=== PATIENT | male | born 1975 | race Caucasian/White ===

== ENCOUNTER 2016-04-03 08:47 | Outpatient (CLI) | payer BC, OTHER | END 2016-04-03 08:48 | disposition home or self-care (01) | DX: I10 Essential (primary) hypertension (principal) ==

== ENCOUNTER 2017-05-03 07:36 | Outpatient (CLI) | payer BC ==
[2017-05-03 13:05] LABS: BASOPHILS % (AUTO) 0.6 %; EOSINOPHILS # (AUTO) 0.2 10^3/uL (0.0-0.7); EOSINOPHILS % (AUTO) 3.8 %; HGB - HEMOGLOBIN 14.6 g/dL (14.0-18.0); LYMPHOCYTES # (AUTO) 1.7 10^3/uL (1.5-3.5); LYMPHOCYTES % (AUTO) 28.2 %; MEAN CORPUSCULAR HGB CONC 34.1 g/dL (32.0-36.0); MEAN CORPUSCULAR VOLUME 96.8 fL (80.0-94.0); MEAN PLATELET VOLUME 8.8 fL (7.4-11.4); MONOCYTES # (AUTO) 0.5 10^3/uL (0.0-1.0); MONOCYTES % (AUTO) 7.7 %; NEUTROPHILS # (AUTO) 3.5 10^3/uL (1.5-6.6); NEUTROPHILS % (AUTO) 59.7 %; PLT - PLATELET COUNT 215 10^3/uL (130-450); RED BLOOD COUNT 4.41 10^6/uL (4.70-6.10); RED CELL DISTRIBUTION WIDTH 13.1 % (12.0-15.0); WHITE BLOOD COUNT 5.9 x10^3/uL (4.8-10.8)
[2017-05-03 13:26] LABS: ALBUMIN 4.2 g/dL (3.2-5.5); ALBUMIN/GLOBULIN RATIO 1.4 (1.0-2.2); ALKALINE PHOSPHATASE 64 IU/L (42-121); ALT ALANINE AMINOTRANSFERASE 32 IU/L (10-60); AST ASPARTATE AMINOTRANSFERASE 21 IU/L (10-42); BILIRUBIN,TOTAL 0.5 mg/dL (0.2-1.0); BUN - BLOOD UREA NITROGEN 16 mg/dL (6-20); CALCIUM 8.5 mg/dL (8.5-10.3); CARBON DIOXIDE - CO2 26 mmol/L (21-32); CHLORIDE 105 mmol/L (101-111); CHOL/HDL RATIO 2.3 (<5.0); CHOLESTEROL 163 mg/dL; CREATININE 0.9 mg/dL (0.6-1.2); GFR - MDRD 92 (>89); GLUCOSE 106 mg/dL (70-100); HDL CHOLESTEROL 71 mg/dL; SODIUM 138 mmol/L (135-145); TOTAL PROTEIN 7.3 g/dL (6.7-8.2)
[2017-05-03 13:29] LABS: HB2 TOTAL 15.8 g/dL; HEMOGLOBIN A1C 0.56 g/dL; HEMOGLOBIN A1C % 5.4 % (4.6-6.2)
[2017-05-03 13:31] LABS: PLATELET ESTIMATE, MANUAL NORMAL (130-450,000) (NORMAL); PLATELET MORPHOLOGY NORMAL APPEARANCE (NORMAL); RBC MORPHOLOGY (MULTIPLE) NORMAL APPEARANCE (NORMAL)
[2017-05-03 13:57] LABS: LDL CHOLESTEROL,DIRECT 78 mg/dL; LDLD/HDL RATIO 1.1 (<3.6)
== END 2017-05-03 07:37 | disposition home or self-care (01) ==
LOC: LAB.WCP 07:36
PROVIDERS: ATTEND Family Medicine
DX: I10 Essential (primary) hypertension (principal); E66.3 Overweight; R73.9 Hyperglycemia, unspecified
CPT/HCPCS: 36415; 80053; 80061; 83036; 83721; 85025

== ENCOUNTER 2017-07-28 08:00 | Outpatient (CLI) | payer BC ==
[2017-07-28 18:52] LABS: BASOPHILS # (AUTO) 0.1 10^3/uL (0.0-0.1); BASOPHILS % (AUTO) 0.8 %; EOSINOPHILS # (AUTO) 0.2 10^3/uL (0.0-0.7); EOSINOPHILS % (AUTO) 3.1 %; HGB - HEMOGLOBIN 14.3 g/dL (14.0-18.0); LYMPHOCYTES # (AUTO) 2.3 10^3/uL (1.5-3.5); MEAN CORPUSCULAR HEMOGLOBIN 32.5 pg (27.0-31.0); MEAN CORPUSCULAR VOLUME 98.5 fL (80.0-94.0); MEAN PLATELET VOLUME 8.7 fL (7.4-11.4); MONOCYTES # (AUTO) 0.5 10^3/uL (0.0-1.0); MONOCYTES % (AUTO) 7.1 %; NEUTROPHILS # (AUTO) 4.3 10^3/uL (1.5-6.6); PLT - PLATELET COUNT 215 10^3/uL (130-450); RED BLOOD COUNT 4.39 10^6/uL (4.70-6.10); RED CELL DISTRIBUTION WIDTH 13.2 % (12.0-15.0); WHITE BLOOD COUNT 7.4 x10^3/uL (4.8-10.8)
[2017-07-28 19:13] LABS: ALBUMIN 4.4 g/dL (3.2-5.5); ALBUMIN/GLOBULIN RATIO 1.5 (1.0-2.2); BILIRUBIN,TOTAL 0.8 mg/dL (0.2-1.0); TOTAL PROTEIN 7.3 g/dL (6.7-8.2)
== END 2017-07-28 08:01 | disposition home or self-care (01) ==
LOC: LAB.WCP 08:00
PROVIDERS: ATTEND Internal Medicine Rheumatology
DX: L40.50 Arthropathic psoriasis, unspecified (principal)
CPT/HCPCS: 36415; 80053; 85025; 85651

== ENCOUNTER 2018-05-17 15:34 | Outpatient (CLI) | payer BC ==
[2018-05-17 15:44] LABS: BASOPHILS # (AUTO) 0.1 10^3/uL (0.0-0.1); BASOPHILS % (AUTO) 0.9 %; EOSINOPHILS # (AUTO) 0.2 10^3/uL (0.0-0.7); EOSINOPHILS % (AUTO) 2.8 %; HGB - HEMOGLOBIN 14.6 g/dL (14.0-18.0); LYMPHOCYTES # (AUTO) 2.1 10^3/uL (1.5-3.5); MEAN CORPUSCULAR HEMOGLOBIN 33.9 pg (27.0-31.0); MEAN CORPUSCULAR HGB CONC 34.1 g/dL (32.0-36.0); MEAN CORPUSCULAR VOLUME 99.3 fL (80.0-94.0); MONOCYTES # (AUTO) 0.5 10^3/uL (0.0-1.0); MONOCYTES % (AUTO) 7.8 %; NEUTROPHILS # (AUTO) 3.2 10^3/uL (1.5-6.6); NEUTROPHILS % (AUTO) 53.5 %; PLT - PLATELET COUNT 198 10^3/uL (130-450); RED BLOOD COUNT 4.32 10^6/uL (4.70-6.10); RED CELL DISTRIBUTION WIDTH 13.5 % (12.0-15.0)
[2018-05-17 15:57] LABS: ALBUMIN 4.4 g/dL (3.2-5.5); ALBUMIN/GLOBULIN RATIO 1.5 (1.0-2.2); BILIRUBIN,TOTAL 0.6 mg/dL (0.2-1.0); CALCIUM 9.3 mg/dL (8.5-10.3); CREATININE 0.9 mg/dL (0.6-1.2); TOTAL PROTEIN 7.3 g/dL (6.7-8.2)
== END 2018-05-17 15:35 | disposition home or self-care (01) ==
LOC: LAB 15:34
PROVIDERS: ATTEND Internal Medicine Gastroenterology
DX: L40.50 Arthropathic psoriasis, unspecified (principal)
CPT/HCPCS: 36415; 80053; 85025

== ENCOUNTER 2018-05-20 06:11 | Day surgery (SDC) | payer BC ==
[2018-05-20] MEDS ORDERED: LACTATED RINGERS 1,000 ML IV ONE (06:50)
[2018-05-20] MEDS ORDERED: MIDAZOLAM 2 MG/2 ML VIAL IVP ONE (07:16)
[2018-05-20] MEDS ORDERED: fentaNYL 250 MCG/5 ML VIAL IVP ONE (07:16)
[2018-05-20 09:21] VITALS: BP 113/73
--- NOTE | 2018-05-20 10:31 | OPERATIVE REPORT ---
DATE OF SERVICE: 05/20/2018 Physician: Jerry Berkowitz MD PREOPERATIVE DIAGNOSIS: Rectal bleeding. POSTOPERATIVE DIAGNOSIS: Enlarged hemorrhoids. INDICATIONS FOR PROCEDURE: The patient is a 42-year-old man who presented to clinic with a chief complaint of painless rectal bleeding with bowel movements. He elected to have a colonoscopy performed at that time. PROCEDURE IN DETAIL: The risks and benefits were explained to the patient and his family. He was taken to the operating room, given sedation. Timeout was performed and everyone in the room agreed to the procedure. We begun by inserting a lubricated colonoscope in the rectal vault. We proceeded to the cecum, identifying the appendiceal orifice. The prep was adequate. We then insufflated the colon and slowly withdrew. No abnormalities were seen, including no masses, polyps, or diverticula. He did have enlarged internal an external hemorrhoids. The scope was then completely withdrawn and the procedure terminated. The patient tolerated the procedure well. He was taken to recovery in stable condition. ESTIMATED BLOOD LOSS: None. COMPLICATIONS: None. PLAN: Will repeat colonoscopy in 10 years. TD: 05/20/2018 08:36 SINDY
== END 2018-05-20 06:12 | disposition home or self-care (01) ==
LOC: SDS 06:11
PROVIDERS: ATTEND Surgery
PROC: 0DJD8ZZ Inspection of Lower Intestinal Tract, Via Natural or Artificial Opening Endoscopic (ICD-10-PCS; principal; 2018-05-20 07:30)
DX: K64.4 Residual hemorrhoidal skin tags (principal); K64.8 Other hemorrhoids; K21.9 Gastro-esophageal reflux disease without esophagitis; K59.09 Other constipation; I10 Essential (primary) hypertension; F81.9 Developmental disorder of scholastic skills, unspecified; E66.9 Obesity, unspecified; Z68.31 Body mass index [BMI] 31.0-31.9, adult; L40.50 Arthropathic psoriasis, unspecified; J30.9 Allergic rhinitis, unspecified; R35.0 Frequency of micturition; L21.9 Seborrheic dermatitis, unspecified; L25.9 Unspecified contact dermatitis, unspecified cause; F39 Unspecified mood [affective] disorder; M77.40 Metatarsalgia, unspecified foot
CPT/HCPCS: 45378; J7120

== ENCOUNTER 2018-07-13 10:12 | Outpatient (CLI) | payer BC ==
[2018-07-13 12:28] LABS: BASOPHILS # (AUTO) 0.1 10^3/uL (0.0-0.1); BASOPHILS % (AUTO) 0.9 %; EOSINOPHILS # (AUTO) 0.3 10^3/uL (0.0-0.7); EOSINOPHILS % (AUTO) 4.8 %; HGB - HEMOGLOBIN 15.4 g/dL (14.0-18.0); LYMPHOCYTES # (AUTO) 1.7 10^3/uL (1.5-3.5); LYMPHOCYTES % (AUTO) 30.6 %; MEAN CORPUSCULAR HEMOGLOBIN 34.1 pg (27.0-31.0); MEAN CORPUSCULAR HGB CONC 34.1 g/dL (32.0-36.0); MEAN PLATELET VOLUME 9.2 fL (7.4-11.4); MONOCYTES # (AUTO) 0.5 10^3/uL (0.0-1.0); MONOCYTES % (AUTO) 8.7 %; PLT - PLATELET COUNT 208 10^3/uL (130-450); RED BLOOD COUNT 4.52 10^6/uL (4.70-6.10); RED CELL DISTRIBUTION WIDTH 13.6 % (12.0-15.0); WHITE BLOOD COUNT 5.5 x10^3/uL (4.8-10.8)
[2018-07-13 13:18] LABS: ALBUMIN 4.3 g/dL (3.2-5.5); ALBUMIN/GLOBULIN RATIO 1.6 (1.0-2.2); BILIRUBIN,TOTAL 0.6 mg/dL (0.2-1.0)
== END 2018-07-13 23:59 | disposition home or self-care (01) ==
LOC: LAB.WCP 10:12
PROVIDERS: ATTEND Internal Medicine Rheumatology
DX: L40.50 Arthropathic psoriasis, unspecified (principal)
CPT/HCPCS: 36415; 80053; 85025; 85651

== ENCOUNTER 2018-08-01 13:36 | Outpatient (CLI) | payer BC ==
--- NOTE | 2018-08-01 14:54 | XRAY Report ---
Reason: BILATERAL HAND PAIN Procedure Date: 08/01/2018 Accession Number: [id number] / [id number] Procedure: WCP - Hand 2 View BILAT CPT Code: FULL RESULT: EXAMS: 1. RIGHT HAND RADIOGRAPHY 2. LEFT HAND RADIOGRAPHY EXAM DATE: 08/01/2018 01:50 PM. CLINICAL HISTORY: Bilateral hand pain. COMPARISON: 03/15/2015 3:24 PM. TECHNIQUE: 2 views each hand. FINDINGS: Right: Bones: Normal. No fractures or bone lesions. Joints: There is joint space loss with minimal or no osteophyte formation, most pronounced at the proximal interphalangeal joints. Subluxation of the proximal interphalangeal joint of the first ray. Minimal progression compared to 2016. Soft Tissues: Normal. No soft tissue swelling. Left: Bones: Normal. No fractures or bone lesions. Joints: Joint space loss predominantly at the interphalangeal joints with no significant accompanying osteophyte formation. There is subluxation at the proximal interphalangeal joint of the first ray. Minimal progression compared to 2016. Soft Tissues: Normal. No soft tissue swelling. 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 RADIA
== END 2018-08-01 13:37 | disposition home or self-care (01) ==
LOC: DI.WCP 13:36
PROVIDERS: ATTEND Internal Medicine Rheumatology
DX: M79.641 Pain in right hand (principal); M79.642 Pain in left hand; L40.50 Arthropathic psoriasis, unspecified

== ENCOUNTER 2018-10-05 08:00 | Outpatient (CLI) | payer BC ==
[2018-10-05 12:28] LABS: BASOPHILS # (AUTO) 0.1 10^3/uL (0.0-0.1); EOSINOPHILS # (AUTO) 0.2 10^3/uL (0.0-0.7); EOSINOPHILS % (AUTO) 3.9 %; HGB - HEMOGLOBIN 15.1 g/dL (14.0-18.0); LYMPHOCYTES # (AUTO) 1.4 10^3/uL (1.5-3.5); LYMPHOCYTES % (AUTO) 27.8 %; MEAN CORPUSCULAR HEMOGLOBIN 34.2 pg (27.0-31.0); MEAN CORPUSCULAR HGB CONC 34.6 g/dL (32.0-36.0); MEAN CORPUSCULAR VOLUME 98.9 fL (80.0-94.0); MONOCYTES # (AUTO) 0.4 10^3/uL (0.0-1.0); MONOCYTES % (AUTO) 8.6 %; NEUTROPHILS # (AUTO) 2.8 10^3/uL (1.5-6.6); NEUTROPHILS % (AUTO) 58.5 %; PLT - PLATELET COUNT 215 10^3/uL (130-450); RED BLOOD COUNT 4.41 10^6/uL (4.70-6.10); RED CELL DISTRIBUTION WIDTH 12.4 % (12.0-15.0); WHITE BLOOD COUNT 4.9 x10^3/uL (4.8-10.8)
[2018-10-05 12:42] LABS: ALBUMIN 4.5 g/dL (3.2-5.5); ALBUMIN/GLOBULIN RATIO 1.6 (1.0-2.2); BILIRUBIN,TOTAL 0.7 mg/dL (0.2-1.0); CALCIUM 9.1 mg/dL (8.5-10.3); TOTAL PROTEIN 7.4 g/dL (6.7-8.2)
== END 2018-10-05 23:59 | disposition home or self-care (01) ==
LOC: LAB.WCP 08:00
PROVIDERS: ATTEND Internal Medicine Rheumatology
DX: L40.50 Arthropathic psoriasis, unspecified (principal)
CPT/HCPCS: 36415; 80053; 85025; 85651

== ENCOUNTER 2018-11-07 08:00 | Outpatient (CLI) | payer BC ==
[2018-11-07 18:38] LABS: BASOPHILS # (AUTO) 0.1 10^3/uL (0.0-0.1); EOSINOPHILS # (AUTO) 0.1 10^3/uL (0.0-0.7); EOSINOPHILS % (AUTO) 2.7 %; HGB - HEMOGLOBIN 14.7 g/dL (14.0-18.0); LYMPHOCYTES # (AUTO) 1.3 10^3/uL (1.5-3.5); LYMPHOCYTES % (AUTO) 27.1 %; MEAN CORPUSCULAR HEMOGLOBIN 34.7 pg (27.0-31.0); MEAN CORPUSCULAR HGB CONC 34.1 g/dL (32.0-36.0); MEAN CORPUSCULAR VOLUME 101.7 fL (80.0-94.0); MEAN PLATELET VOLUME 10.9 fL (7.4-11.4); MONOCYTES # (AUTO) 0.5 10^3/uL (0.0-1.0); MONOCYTES % (AUTO) 10.6 %; NEUTROPHILS # (AUTO) 2.9 10^3/uL (1.5-6.6); NEUTROPHILS % (AUTO) 58.4 %; PLT - PLATELET COUNT 216 10^3/uL (130-450); RED BLOOD COUNT 4.24 10^6/uL (4.70-6.10); RED CELL DISTRIBUTION WIDTH 12.8 % (12.0-15.0); WHITE BLOOD COUNT 4.9 x10^3/uL (4.8-10.8)
[2018-11-07 18:44] LABS: ALBUMIN 4.2 g/dL (3.2-5.5); ALBUMIN/GLOBULIN RATIO 1.4 (1.0-2.2); BILIRUBIN,TOTAL 0.7 mg/dL (0.2-1.0); CALCIUM 9.1 mg/dL (8.5-10.3); TOTAL PROTEIN 7.2 g/dL (6.7-8.2)
== END 2018-11-07 23:59 | disposition home or self-care (01) ==
LOC: LAB.WCP 08:00
PROVIDERS: ATTEND Internal Medicine Gastroenterology
DX: L40.50 Arthropathic psoriasis, unspecified (principal)
CPT/HCPCS: 36415; 80053; 85025; 87040

== ENCOUNTER 2019-04-05 10:26 | Outpatient (CLI) | payer BC ==
[2019-04-05 13:16] LABS: EOSINOPHILS # (AUTO) 0.1 10^3/uL (0.0-0.7); EOSINOPHILS % (AUTO) 3.2 %; HGB - HEMOGLOBIN 14.1 g/dL (14.0-18.0); LYMPHOCYTES # (AUTO) 1.3 10^3/uL (1.5-3.5); LYMPHOCYTES % (AUTO) 32.5 %; MEAN CORPUSCULAR HEMOGLOBIN 34.5 pg (27.0-31.0); MEAN CORPUSCULAR HGB CONC 34.1 g/dL (32.0-36.0); MEAN CORPUSCULAR VOLUME 101.2 fL (80.0-94.0); MEAN PLATELET VOLUME 11.2 fL (7.4-11.4); MONOCYTES # (AUTO) 0.3 10^3/uL (0.0-1.0); MONOCYTES % (AUTO) 7.3 %; NEUTROPHILS # (AUTO) 2.3 10^3/uL (1.5-6.6); PLT - PLATELET COUNT 211 10^3/uL (130-450); RED BLOOD COUNT 4.09 10^6/uL (4.70-6.10); RED CELL DISTRIBUTION WIDTH 12.9 % (12.0-15.0); WHITE BLOOD COUNT 4.1 x10^3/uL (4.8-10.8)
[2019-04-05 13:52] LABS: ALBUMIN 4.4 g/dL (3.2-5.5); ALBUMIN/GLOBULIN RATIO 1.6 (1.0-2.2); BILIRUBIN,TOTAL 0.7 mg/dL (0.2-1.0); CALCIUM 8.9 mg/dL (8.5-10.3); CREATININE 0.9 mg/dL (0.6-1.2); TOTAL PROTEIN 7.1 g/dL (6.7-8.2)
== END 2019-04-05 23:59 | disposition home or self-care (01) ==
LOC: LAB.WCP 10:26
PROVIDERS: ATTEND Internal Medicine Rheumatology
DX: L40.50 Arthropathic psoriasis, unspecified (principal)
CPT/HCPCS: 36415; 80053; 85025; 85651

== ENCOUNTER 2020-03-14 15:22 | Outpatient (CLI) | payer BC, MEDICARE ==
--- NOTE | 2020-03-14 16:52 | XRAY Report ---
PROCEDURE: Ribs 2 View RT INDICATIONS: RIGHT RIB PAIN TECHNIQUE: 3 views of the right ribs were acquired. COMPARISON: None FINDINGS: Surgical changes and devices: None. Bones and chest wall: Nondisplaced fracture of the lateral right seventh rib. Other osseous structure s appear intact.. No suspicious bony lesions. Overlying soft tissues appear unremarkable. Lungs and pleura: The visualized lung appears clear. No pleural effusions or pneumothorax are visib le. IMPRESSION: Nondisplaced lateral right seventh rib fracture. Chest without acute cardiopulmonary abnormalities. Reviewed by: Víctor Chauhan MD on 03/14/2020 3:51 PM [facility] Approved by: Víctor Chauhan MD on 03/14/2020 3:51 PM [facility] Station ID: [id number]
== END 2020-03-14 15:23 | disposition home or self-care (01) ==
LOC: DI.WCP 15:22
PROVIDERS: ATTEND Internal Medicine
DX: S22.31XA Fracture of one rib, right side, initial encounter for closed fracture (principal)

== ENCOUNTER 2022-06-26 16:48 | Emergency (ER) | payer MEDICARE ==
[2022-06-26 17:07] VITALS: BP 137/93
[2022-06-26] MEDS ORDERED: LIDOCAINE 1%-EPI 1:100000 20 ML MDV SUBQ STA (17:25)
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
== END 2022-06-26 18:52 | disposition home or self-care (01) ==
LOC: ED 16:48
DX: S81.012A Laceration without foreign body, left knee, initial encounter (principal); V19.9XXA Pedal cyclist (driver) (passenger) injured in unspecified traffic accident, initial encounter; Y93.55 Activity, bike riding; I10 Essential (primary) hypertension
CPT/HCPCS: 12002; 99282

== ENCOUNTER 2022-07-02 14:50 | Outpatient (CLI) | payer MEDICARE | END 2022-07-02 14:51 | disposition home or self-care (01) | LOC: LAB 14:50 | PROVIDERS: ATTEND Physician Assistant | DX: R60.0 Localized edema (principal) | CPT/HCPCS: 36415; 85379 ==

== ENCOUNTER 2022-07-17 18:45 | Outpatient (CLI) | payer MEDICARE ==
--- NOTE | 2022-07-17 23:07 | Ultrasound Report ---
PROCEDURE: Duplex Ext Veins Bilateral INDICATIONS: Bilateral lower extremity edema TECHNIQUE: Real-time imaging, as well as color and pulse Doppler interrogation, were performed of the deep veins of both legs from the inguinal ligament to the popliteal fossa. COMPARISON: 10/31/2012 FINDINGS: The deep veins are normally compressible, and free of intraluminal thrombus. Color and pu lse Doppler demonstrate normal phasic intravascular flow. There is normal augmentation response to d istal compression maneuver. IMPRESSION: No findings of deep venous thrombosis are seen. Reviewed by: Tulio Barone MD on 07/17/2022 10:05 PM [facility] Approved by: Tulio Barone MD on 07/17/2022 10:05 PM [facility] Station ID: [id number]
== END 2022-07-17 18:46 | disposition home or self-care (01) ==
LOC: DI 18:45
PROVIDERS: ATTEND Physician Assistant
DX: R60.0 Localized edema (principal)
CPT/HCPCS: 93970

== ENCOUNTER 2024-10-21 09:37 | Inpatient (IN) ==
--- OUTSIDE RECORDS SUMMARY | 2024-10-21 09:58 | EXTERNAL MEDICAL SUMMARY RPT | Continuity of Care Document ---
Author Organization [facility] Address [address] [place] [id number] Phone Problems date description facility 2024-10-20 00:13 Cellulitis, unspecified [facility] 2024-10-20 00:23 Cellulitis, unspecified [facility] 2024-10-20 10:24 Cellulitis, unspecified [facility] 2024-10-21 09:46 Cellulitis, unspecified [facility] Results/Labs test date facility value unit notes Result panel 1 NUCLEATED RED BLOOD CELLS AUTO 2024-10-19 23:25 [facility] 0.0 /100wbc (missing) BASOPHILS # (AUTO) 2024-10-19 23:25 [facility] 0.0 10 3/ul (missing) EOSINOPHILS # (AUTO) 2024-10-19 23:25 [facility] 0.0 10 3/ul (missing) NRBC ABSOLUTE COUNT (AUTO) 2024-10-19 23:25 [facility] 0.00 x10 3/ul (missing) BILIRUBIN,TOTAL 2024-10-19 23:25 [facility] 0.9 mg /dl As of August 2022 testing method has changed, this may include reference ranges. LYMPHOCYTES # (AUTO) 2024-10-19 23:25 [facility] 1.0 10 3/ul (missing) CREATININE 2024-10-19 23:25 [facility] 1.0 mg/dl As of August 2022 testing method has changed, this may include reference ranges. MONOCYTES # (AUTO) 2024-10-19 23:25 [facility] 1.1 10 3/ul (missing) NEUTROPHILS # (AUTO) 2024-10-19 23:25 [facility] 10.5 10 3/ul (missing) MEAN PLATELET VOLUME 2024-10-19 23:25 [facility] 10.6 fl (missing) CHLORIDE 2024-10-19 23:25 [facility] 102 mmol/l As of August 2022 testing method has changed, this may include reference ranges. GLUCOSE 2024-10-19 23:25 [facility] 114 mg/dl As of August 2022 testing method has changed, this may include reference ranges. RED CELL DISTRIBUTION WIDTH 2024-10-19 23:25 [facility] 12.6 % (missing) WHITE BLOOD COUNT 2024-10-19 23:25 [facility] 12.8 x10 3/ul (missing) BUN - BLOOD UREA NITROGEN 2024-10-19 23:25 [facility] 13 mg/dl As of Aug testing method has changed, this may include reference ranges. HGB - HEMOGLOBIN 2024-10-19 23:25 [facility] 13.8 g /dl (missing) SODIUM 2024-10-19 23:25 [facility] 136 mmol/l (missing) AST ASPARTATE AMINOTRANSFERASE 2024-10-19 23:25 [facility] 15 iu/l As of August 2022 testing method has changed, this may include reference ranges. PLT - PLATELET COUNT 2024-10-19 23:25 [facility] 165 10 3/ul (missing) ALBUMIN/GLOBULIN RATIO 2024-10-19 23:25 [facility] 2.0 (missing) (missing) GLOBULIN 2024-10-19 23:25 [facility] 2.1 g/dl (missing) ALT ALANINE AMINOTRANSFERASE 2024-10-19 23:25 [facility] 23 iu/l As of August 2022 testing method has changed, this may include reference ranges. CARBON DIOXIDE - CO2 2024-10-19 23:25 [facility] 28 mmol/l As of August 2022 testing method has changed, this may include reference ranges. POTASSIUM 2024-10-19 23:25 [facility] 3.7 mmol/l As of August 2022 testing method has changed, this may include reference ranges. RED BLOOD COUNT 2024-10-19 23:25 [facility] 3.90 10 6/ul (missing) MEAN CORPUSCULAR HEMOGLOBIN 2024-10-19 23:25 [facility] 35.4 pg (missing) MEAN CORPUSCULAR HGB CONC 2024-10-19 [facility]missing) HCT - HEMATOCRIT 2024-10-19 23:25 [facility] [place] 38.9 % (missing) ALBUMIN 2024-10-19 23:25 [facility] 4.2 g/dl As of August 2022 testing method has changed, this may include reference ranges. ALKALINE PHOSPHATASE 2024-10-19 23: [facility] 56 iu/l As of August 2022 testing method has changed, this may include reference ranges. ANION GAP 2024-10-19 23[facility] [place] 6.0 (missing ) (missing) TOTAL PROTEIN 2024-10-19 23:[facility] [place] 6.3 g/dl As of August 2022 testing method has changed, this may include reference ranges. GFR - MDRD 2024-10-19 23:25 [facility] (elean denson) Social History date description facility
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
[2024-10-21 11:28] LABS: HCT - HEMATOCRIT 39.0 % (42.0-52.0); HGB - HEMOGLOBIN 13.6 g/dL (14.0-18.0); MEAN PLATELET VOLUME 10.1 fL (7.4-11.4); NRBC ABSOLUTE COUNT (AUTO) 0.00 x10^3/uL; NUCLEATED RED BLOOD CELLS AUTO 0.0 /100WBC; PLT - PLATELET COUNT 156 10^3/uL (130-450); RED CELL DISTRIBUTION WIDTH 12.4 % (12.0-15.0)
[2024-10-21 11:52] LABS: BUN - BLOOD UREA NITROGEN 13.0 mg/dL (6-20); CARBON DIOXIDE - CO2 27.0 mmol/L (21-32); CREATININE 1.0 mg/dL (0.6-1.3); GFR - MDRD 79.0 (>89)
[2024-10-21] MEDS: AMPICILLIN/SULBACTAM 3 GM in SODIUM CHLORIDE 0.9% MINIBAG 100 ML IV STA (11:57)
[2024-10-21] MEDS: VANCOMYCIN INJ 2 GM, VANCOMYCIN INJ 500 MG in SODIUM CHLORIDE 0.9% 500 ML IV STA (12:32)
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
[2024-10-21] MEDS ORDERED: ONDANSETRON 4 MG/2 ML VIAL IVP PRN (14:25)
[2024-10-21] MEDS ORDERED: SODIUM CHLORIDE FLUSH 0.9% 10 ML SYRINGE IVP PRN (14:25)
[2024-10-21] MEDS ORDERED: ONDANSETRON ODT 4 MG TABLET TL PRN (14:25)
[2024-10-21] MEDS ORDERED: LOSARTAN HYDROCHLOROTHIAZIDE PO SCH (14:30)
[2024-10-21] MEDS: ACETAMINOPHEN 325 MG TABLET PO PRN (15:17)
[2024-10-21] MEDS: TAMSULOSIN 0.4 MG CAPSULE PO SCH (16:13)
[2024-10-21] MEDS: SODIUM CHLORIDE FLUSH 0.9% 10 ML SYRINGE IVP SCH (16:14)
[2024-10-21] MEDS: TETANUS/DIPHTHERIA/PERTUSSIS 0.5 ML SYRINGE IM ONE (20:36)
[2024-10-22] MEDS ORDERED: VANCOMYCIN 1 GM VIAL ONE (00:14)
[2024-10-22] MEDS ORDERED: VANCOMYCIN 500 MG VIAL ONE (00:14)
[2024-10-22] MEDS: VANCOMYCIN INJ 1 GM, VANCOMYCIN INJ 500 MG in SODIUM CHLORIDE 0.9% 500 ML IV SCH (00:22)
[2024-10-22] MEDS: HYDROcod/ACETAM 5/325 MG TABLET PO PRN (00:23)
[2024-10-22 06:03] LABS: HCT - HEMATOCRIT 35.4 % (42.0-52.0); HGB - HEMOGLOBIN 12.0 g/dL (14.0-18.0); MEAN PLATELET VOLUME 10.5 fL (7.4-11.4); PLT - PLATELET COUNT 153.0 10^3/uL (130-450); RED CELL DISTRIBUTION WIDTH 12.4 % (12.0-15.0)
[2024-10-22 06:22] LABS: BUN - BLOOD UREA NITROGEN 10.0 mg/dL (6-20); CARBON DIOXIDE - CO2 29.0 mmol/L (21-32); CREATININE 0.8 mg/dL (0.6-1.3); GFR - MDRD 102.0 (>89)
[2024-10-22] MEDS: PANTOPRAZOLE 40 MG TABLET PO SCH (06:30)
[2024-10-22] MEDS: LOSARTAN 50 MG TABLET PO SCH (08:45)
[2024-10-22] MEDS: ENOXAPARIN 40 MG/0.4 ML SYRINGE SUBQ SCH (08:45)
[2024-10-22] MEDS: FOLIC ACID 1 MG TABLET PO SCH (08:45)
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
[2024-10-22] MEDS: POTASSIUM CHLORIDE 20 MEQ TABLET PO ONE (20:09)
[2024-10-23 05:38] LABS: HCT - HEMATOCRIT 34.9 % (42.0-52.0); HGB - HEMOGLOBIN 12.1 g/dL (14.0-18.0); MEAN PLATELET VOLUME 10.9 fL (7.4-11.4); PLT - PLATELET COUNT 182.0 10^3/uL (130-450); RED CELL DISTRIBUTION WIDTH 12.2 % (12.0-15.0)
[2024-10-23 05:57] LABS: BUN - BLOOD UREA NITROGEN 8.0 mg/dL (6-20); CARBON DIOXIDE - CO2 29.0 mmol/L (21-32); CREATININE 0.8 mg/dL (0.6-1.3); GFR - MDRD 102.0 (>89)
[2024-10-23] MEDS: CHOLECALCIFEROL 25 MCG TABLET PO SCH (09:01)
[2024-10-23] MEDS: POTASSIUM CHLORIDE 20 MEQ TABLET PO ONE (09:09)
[2024-10-23 09:49] VITALS: TEMP 97.9
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
[2024-10-23 14:36] VITALS: BP 171/117; O2SAT 95
== END 2024-10-23 14:12 | disposition home or self-care (01) | DRG 603 ==
LOC: ED 09:37 → MS2 09:37
PROVIDERS: ADMIT Internal Medicine; ATTEND Internal Medicine